=== PATIENT | female | born 1970 | race Caucasian/White ===

== ENCOUNTER 2020-07-23 07:30 | Outpatient (REF) | payer BC, SELFPAY ==
--- NOTE | 2020-07-23 07:45 | MM_ITS ---
EXAMINATION: MM SCREENING DIGITAL BREAST TOMOSYNTHESIS, BILATERAL CLINICAL INFORMATION: Screening. Asymptomatic. Family history breast cancer in aunt. The lifetime risk of breast cancer based on the Tyrer-Cuzick Model is 16%. COMPARISON: Mammography: 07/18/2019, 05/03/2018, 04/14/2016 TECHNIQUE: Digital breast tomosynthesis is performed in both the craniocaudal and mediolateral oblique views along with computer-aided detection (CAD). Synthesized 2D images are generated from the tomosynthesis. FINDINGS: There are scattered areas of fibroglandular density (ACR BI-RADS breast composition Category b). There are no significant masses, abnormal calcifications, or other abnormalities. No dominant nodularity. No developing density. No significant changes from prior studies. IMPRESSION: No mammographic evidence of malignancy. ASSESSMENT: BI-RADS 1: Negative RECOMMENDATION: Routine annual mammography screening. This patient's information was entered into a reminder system with a target due date for their next mammogram.
== END 2020-07-23 07:31 | disposition home or self-care (01) ==
LOC: HO.MAMMO 07:30
PROVIDERS: PCP Family Medicine; Visit Provider Family Medicine
DX: Z12.31 Encounter for screening mammogram for malignant neoplasm of breast (principal)
CPT/HCPCS: 77063; 77067; 78014

== ENCOUNTER 2021-03-04 09:07 | Outpatient (REF) | payer BC, SELFPAY ==
[2021-03-09 00:53] LABS: HPV mRNA E6/E7 rflx Not Detected (Not Detected)
== END 2021-03-04 09:08 | disposition home or self-care (01) ==
LOC: HO.LAB 09:07
PROVIDERS: Visit Provider Obstetrics & Gynecology
DX: Z01.419 Encounter for gynecological examination (general) (routine) without abnormal findings (principal); Z11.51 Encounter for screening for human papillomavirus (HPV)
CPT/HCPCS: 87624; 88142

== ENCOUNTER 2021-03-10 14:49 | Outpatient (REF) | payer BC, SELFPAY ==
--- NOTE | ~2021-03-10 | US_ITS ---
EXAMINATION: US PELVIS AND TRANSVAGINAL. CLINICAL INFORMATION: Displacement of IUD COMPARISON: None TECHNIQUE: Transabdominal and transvaginal imaging of pelvis is performed. FINDINGS: The uterus is anteverted measuring 10.1 cm in length, 3.6 cm in AP and 5.0 cm in transverse dimension. There is IUD well located within the endometrial canal. The endometrial thickness cannot be measured due to IUD. The uterus is homogeneous in echotexture. There are small anechoic cysts seen in the cervix. Right ovary measures 2.6 x 1.5 x 1.1 cm and volume 2.2 mL. Previously it measured 2.8 x 1.5 x 2.1 cm. Left ovary measures 2.7 x 2.4 cm on transabdominal ultrasound. Transvaginally left ovary is not seen. There is no free fluid in the cul-de-sac. US/US pelvic and transvaginal IMPRESSION: Anteverted uterus with IUD within the endometrial canal in the correct position. The ovaries are unremarkable. The left ovary seen only transabdominally. Small nabothian cysts seen in the cervix.
== END 2021-03-10 14:50 | disposition home or self-care (01) ==
LOC: HO.US 14:49
PROVIDERS: Visit Provider Obstetrics & Gynecology
DX: T83.32XA Displacement of intrauterine contraceptive device, initial encounter (principal)
CPT/HCPCS: 76830; 76856

== ENCOUNTER → 2021-03-22 11:26 | Outpatient (BNVA) | payer BC, SELFPAY | PROVIDERS: Visit Provider Obstetrics & Gynecology ==

== ENCOUNTER → 2021-05-09 08:00 | Outpatient (BNVA) | payer BC, SELFPAY | PROVIDERS: Visit Provider Obstetrics & Gynecology | DX: Z30.432 Encounter for removal of intrauterine contraceptive device (principal); N91.2 Amenorrhea, unspecified | CPT/HCPCS: 58301 ==

== ENCOUNTER 2021-05-19 07:38 | Outpatient (REF) | payer BC, SELFPAY ==
[2021-05-21 02:32] LABS: Follicle Stimulating Hormone 26.8 mIU/mL; Lutenizing Hormone 14.5 mIU/mL
== END 2021-05-19 07:39 | disposition home or self-care (01) ==
LOC: HO.LAB 07:38
PROVIDERS: PCP Family Medicine; Visit Provider Obstetrics & Gynecology
DX: N91.2 Amenorrhea, unspecified (principal)
CPT/HCPCS: 36415; 83001; 83002

== ENCOUNTER → 2021-05-30 11:51 | Outpatient (BNVA) | payer BC, SELFPAY | PROVIDERS: PCP Family Medicine; Visit Provider Obstetrics & Gynecology ==

== ENCOUNTER 2022-12-06 08:30 | Outpatient (REF) | payer BC, SELFPAY ==
--- NOTE | ~2022-12-06 | MM_ITS ---
EXAMINATION: MM SCREENING DIGITAL BREAST TOMOSYNTHESIS, BILATERAL CLINICAL INFORMATION: Screening. Asymptomatic. The lifetime risk of breast cancer based on the Tyrer-Cuzick Model is 14%. COMPARISON: Mammography: 03/31/2020, 07/18/2019, 05/03/2018 TECHNIQUE: Digital breast tomosynthesis is performed in both the craniocaudal and mediolateral oblique views along with computer-aided detection (CAD). Synthesized 2D images are generated from the tomosynthesis. Additional views are provided: Right CC, left MLO. FINDINGS: There are scattered areas of fibroglandular density (ACR BI-RADS breast composition Category b). There are no significant masses, abnormal calcifications, or other abnormalities. Parenchymal pattern is similar to prior studies. There is no developing density or architectural abnormality. The axilla and skin contours are unremarkable. No significant changes. MM/MM tomosynthesis screening BI IMPRESSION: No mammographic evidence of malignancy. ASSESSMENT: BI-RADS 1: Negative RECOMMENDATION: Routine annual mammography screening. This patient's information was entered into a reminder system with a target due date for their next mammogram.
== END 2022-12-06 08:31 | disposition home or self-care (01) ==
LOC: HO.MAMMO 08:30
PROVIDERS: PCP Family Medicine; Visit Provider Family Medicine
DX: Z12.31 Encounter for screening mammogram for malignant neoplasm of breast (principal)
CPT/HCPCS: 77063; 77067

== ENCOUNTER 2023-12-11 07:57 | Outpatient (REF) | payer BC, SELFPAY | END 2023-12-11 07:58 | disposition home or self-care (01) | LOC: HO.MAMMO 07:57 | PROVIDERS: PCP Family Medicine; Visit Provider Family Medicine | DX: Z12.31 Encounter for screening mammogram for malignant neoplasm of breast (principal) | CPT/HCPCS: 77063; 77067 ==

== ENCOUNTER → 2023-12-11 08:00 | Outpatient (BNV) | payer BC, SELFPAY | PROVIDERS: PCP Family Medicine; Visit Provider Radiology Diagnostic Radiology | DX: Z12.31 Encounter for screening mammogram for malignant neoplasm of breast (principal) | CPT/HCPCS: 77063; 77067 ==

== ENCOUNTER → 2024-12-16 08:00 | Outpatient (BNV) | payer BC, SELFPAY | PROVIDERS: PCP Family Medicine; Visit Provider Internal Medicine | DX: Z12.31 Encounter for screening mammogram for malignant neoplasm of breast (principal) | CPT/HCPCS: 77063; 77067 ==

== ENCOUNTER 2024-12-16 08:03 | Outpatient (REF) | payer BC, SELFPAY | END 2024-12-16 08:04 | disposition home or self-care (01) | LOC: HO.MAMMO 08:03 | PROVIDERS: PCP Family Medicine; Visit Provider Family Medicine | DX: Z12.31 Encounter for screening mammogram for malignant neoplasm of breast (principal) | CPT/HCPCS: 77063; 77067 ==